=== PATIENT | male | born 1940 | race Caucasian/White ===

== ENCOUNTER → 2016-11-26 | Day surgery (SDC) | payer MEDICARE ==
[~2016-11-26] VITALS: Ht 182.9 cm; Wt 79.5 kg
[~2016-11-26] MED LIST: HYALURONIDASE/LIDOCAINE/EPINEPHRINE/BUPIVACAINE 4.5 ML SYR RIGHT EYE ONE; HYALURONIDASE/LIDOCAINE/EPINEPHRINE/BUPIVACAINE 6 ML SYR RIGHT EYE ONE; LIDOCAINE HCL 1% 30 ML VIAL ONE; LORA-373 PO; LOSA25TA PO; LOVA20TA PO; MIDAZOLAM HCL 2 MG/2 ML VIAL ONE; PROPARACAINE HCL 0.5% OPHT SOLN 15 ML BTL RIGHT EYE ONE; PROPOFOL 200 MG/20 ML AMP ONE; SAW160TA PO; SODIUM CHLORID 0.9% 500 ML INJ 500 ML ONE
[2016-11-26 06:30] VITALS: BP 138/78; PULSE 51; RESP 16; TEMP 98.2; O2SAT 97
[2016-11-26] MEDS: FLURBIPROFEN 0.03% OPHT SOLN 2.5 ML BTL RIGHT EYE SCH ×4 (06:33→06:48)
[2016-11-26] MEDS: PHENYLEPHRINE HCL 10% OPTH SOLN 5 ML BTL RIGHT EYE SCH ×4 (06:33→06:48)
[2016-11-26] MEDS: CYCLOPENTOLATE HCL 1% OPHT SOLN 2 ML BTL RIGHT EYE SCH ×4 (06:33→06:48)
[2016-11-26] MEDS: TROPICAMIDE 1% OPHT SOLN 15 ML BTL RIGHT EYE SCH ×4 (06:33→06:48)
[2016-11-26 06:35] VITALS: PULSE 50
[2016-11-26 07:25] VITALS: PULSE 68
[2016-11-26] MEDS: TOBRAMYCIN/DEXAMETHASONE OPTH OINT 3.5 GM TUBE ONE ×2 (08:20→08:36)
[2016-11-26 08:45] VITALS: TEMP 98
[2016-11-26 09:00] VITALS: BP 116/66; PULSE 48; RESP 15; O2SAT 98
--- NOTE | 2016-11-27 15:27 | MP ---
cc: DWAYNE BERRIOS M.D. Corrected Copy: 12/08/16 [facility] NUMBER: [id number] DATE OF SURGERY: 11/26/2016 PREOPERATIVE DIAGNOSIS: Visually significant cataract right eye. POSTOPERATIVE DIAGNOSIS: Visually significant cataract right eye. OPERATION: Phacoemulsification with posterior chamber lens implantation, right eye. SURGEON: Dwayne Berrios MD ANESTHESIA: Retrobulbar with MAC. COMPLICATIONS: None. PROCEDURE: After informed consent was obtained, the patient was brought into the operative suite and placed on appropriate monitors by the Anesthesia Service. The patient had received a prior retrobulbar injection of local anesthetic by the Anesthesia Service in the holding area. The patient's operative eye was then prepped and draped in the usual sterile fashion. A wire lid speculum was placed. A paracentesis incision was made in the peripheral cornea with a 1 mm agnes keratome. The anterior chamber was filled with viscoelastic. The anterior chamber was then entered through a stepped, clear corneal incision using a sharp 3 mm agnes keratome. A circular tear capsulorrhexis was then made with a bent needle cystitome. Following hydrodissection of the lens nucleus with balanced saline, phaco-emulsification of the nucleus was performed using a modified chopping technique. The remaining cortex was removed with irrigation/aspiration. The prior two procedures were both performed using the handpieces of the [employer] phaco unit. The capsular bag was then filled with viscoelastic. The intraocular lens was then injected into the capsular bag and positioned. The type of intraocular lens and its power can be found elsewhere in this chart. The remaining viscoelastic was then removed from the anterior chamber with the IA handpiece. The anterior chamber was reformed with balanced saline. The wound was then closed securely with stromal hydration. It was found to be watertight to an intraocular pressure of at least 30 mmHg by palpation. A small amount of balanced salt solution was then removed through the paracentesis site and the intraocular pressure at the end of the case was approximately 20 by palpation. All drapes were then removed. TobraDex ointment was then placed in the eye, which was closed beneath a semi-pressure patch dressing. The patient tolerated this procedure well and left the operating room awake and alert. The patient is to follow-up in my office in the morning. MD Brittni Hutchins /9:47 AM /10:01 AM
== END | disposition home or self-care (01) ==
LOC: CSDC 05:48
PROVIDERS: ATTEND Optometrist Occupational Vision
DX: H25.11 Age-related nuclear cataract, right eye (principal)
CPT/HCPCS: 00142; 66984; J2250; J7040; V2632

== ENCOUNTER 2018-07-31 16:18 | Inpatient (IN) ==
[2018-07-31 16:47] LABS: ABG Base Excess 9.7 mmol/L (-2-2); ABG PCO2 56 mmHg (38-42); ABG PO2 119 mmHg (61-120)
--- NOTE | 2018-07-31 16:59 | ED ---
HPI General Chief complaint: Respiratory Symptoms Stated complaint: Resp Distress Time Seen by Provider: 07/31/18 16:37 History of Present Illness HPI narrative: This is a 78-year-old male with a history of COPD, presents today with complaints of shortness of breath. Patient reports that he started experience shortness of breath at home. Despite his medications, patient became very winded. There is no reported fevers, chills. There is no reported productive colored phlegm. He denies any chest pain, chest pressure. There are no other complaints at time of examination. Related Data Home Medications Medication Instructions Recorded Confirmed cyanocobalamin (vitamin B-12) 1,000 mcg PO BID 07/03/18 07/31/18 [Vitamin B-12] lorazepam 0.5 mg PO HS 07/03/18 07/31/18 lovastatin 20 mg PO DAILY 07/03/18 07/31/18 saw palmetto 320 mg PO DAILY 07/03/18 07/31/18 memantine 5 mg PO HS 07/31/18 07/31/18 memantine [Namenda] 10 mg PO DAILY 07/31/18 07/31/18 Previous Rx's Medication Instructions Recorded albuterol sulfate 1 inh INHALATION Q6H PRN #18 g 07/03/18 Allergies Allergy/AdvReac Type Severity Reaction Status Date / Time ipratropium Allergy Severe Itching Verified 07/03/18 18:21 Review of Systems Constitutional Reports system reviewed and no additional complaints, except as docu Eyes Reports system reviewed and no additional complaints, except as docu ENT Reports system reviewed and no additional complaints, except as docu Cardiovascular Denies chest pain and Reports dyspnea Respiratory Denies chest congestion, Reports cough and Reports dyspnea Gastrointestinal Reports system reviewed and no additional complaints, except as docu Genitourinary Denies system reviewed and no additional complaints, except as docu Musculoskeletal Denies back pain and Denies numbness Neurologic Reports system reviewed and no additional complaints, except as docu [facility] Medical History Medical History COPD (chronic obstructive pulmonary disease) (Acute) Alzheimer disease (Acute) Hyperlipidemia (Acute) Social History Social History Substance History: No History of Abuse Second Hand Smoke Exposure: No Smoking Status: Former smoker Tobacco Type: Cigarettes How Often Do You Have a Drink Containing Alcohol: Monthly or less Recent Travel in [facility] within the Last 8 Weeks: No Recent Out of Country Travel within the Last 8 Weeks: No Immunization History Tetanus Immunization: <5 Years Exam Narrative Exam Narrative: GENERAL: Thin elderly appearing male in moderate respiratory distress. SKIN: Focused skin assessment warm/dry. HEAD: Atraumatic. Normocephalic. EYES: Pupils equal and round. No scleral icterus. No injection or drainage. ENT: No nasal bleeding or discharge. Mucous membranes pink and moist. NECK: Trachea midline. Supple. CARDIOVASCULAR: Regular rate and rhythm. No murmur appreciated. RESPIRATORY: Positive accessory muscle use. Decreased breath sounds throughout all 4 lung burrows. No rales appreciated GASTROINTESTINAL: Abdomen soft, non-tender, nondistended. Hepatic and splenic margins not palpable. MUSCULOSKELETAL: No obvious deformities. No clubbing. No cyanosis. No edema. NEUROLOGICAL: Awake and alert. No obvious cranial nerve deficits. Motor grossly within normal limits. Normal speech. Course Initial Documented Vital Signs Temperature 97.3 F L 07/31/18 16:23 Pulse Rate 77 07/31/18 16:23 Respiratory Rate 24 07/31/18 16:23 Blood Pressure 137/74 07/31/18 16:23 Pulse Oximetry 99 07/31/18 16:23 Last Documented Vital Signs Temperature 97.3 F L 07/31/18 16:23 Pulse Rate 84 07/31/18 18:00 Respiratory Rate 21 07/31/18 18:00 Blood Pressure 122/67 07/31/18 18:00 Pulse Oximetry 97 07/31/18 18:00 Medical Decision Making MDM Narrative Medical decision making narrative: 78-year-old male with a history of Alzheimer' s disease, COPD, who presents today with complaints of shortness of breath. Patient was at home when he became extremely short of breath. Patient was given nebulizer treatments en route and 125 mg of Solu-Medrol. The patient is a DO NOT RESUSCITATE. He has been given 2 further nebulizer treatments. He is breathing much better. He will be admitted to the hospital for continued nebulizer treatments and IV steroids. Case was discussed with Dr. Tra Meade, [facility], who agrees with the admission. Medical Screen Exam Complete: Yes Emergency Medical Condition: Yes Differential Diagnosis Differential Diagnosis: COPD exacerbation versus pneumonia versus bronchitis. Lab Data Result diagrams: 07/31/18 16:49 07/31/18 16:49 Lab Results 07/31/18 07/31/18 07/31/18 Range/Units 16:25 16:49 16:49 WBC 5.8 (4.0-11.0) th/mm3 RBC 4.56 (4.50-5.90) mil/mm3 Hgb 15.2 (13.0-17.0) gm/dL Hct 46.3 (39.0-51.0) % MCV 101.6 H (80.0-100.0) fL MCH 33.3 (27.0-34.0) pg MCHC 32.8 (32.0-36.0) % RDW 12.8 (11.6-17.2) % Plt Count 196 (150-450) th/mm3 MPV 9.4 (7.0-11.0) fL Neut % (Auto) 67.5 (16.0-70.0) % Lymph % (Auto) 19.3 (9.0-44.0) % [place] % (Auto) 10.0 H (0.0-8.0) % Eos % (Auto) 2.6 (0.0-4.0) % Baso % (Auto) 0.6 (0.0-2.0) % Neut # (Auto) 3.9 (1.8-7.7) th/mm3 Lymph # (Auto) 1.1 (1.0-4.8) th/mm3 [place] # (Auto) 0.6 (0.0-0.9) th/mm3 Eos # (Auto) 0.2 (0.0-0.4) th/mm3 Baso # (Auto) 0.0 (0.0-0.2) th/mm3 WBC Differential . Differential Comment Auto diff final Puncture Site Left radial Patient Temperature 98.6 O2 Saturation 97 (90-100) % ABG pH 7.41 (7.380-7.420) ABG pCO2 56 H* (38-42) mmHg ABG pO2 119 (61-120) mmHg ABG HCO3 35 H (22-26) mmol/L ABG O2 Content 20.9 H (12.0-20.0) Vol % ABG Base Excess 9.7 H (-2-2) mmol/L ABG Methemoglobin 0.6 (0-2) % Ty Test Present Hemoglobin 15.3 (12.0-16.0) G/DL Carboxyhemoglobin 1.3 (0-4) % O2 Delivery Device Nasal cannula Liter Flow 3.00 L/M Critical Value Yes Sodium 143 (136-145) meq/L Potassium 4.2 (3.5-5.1) meq/L Chloride 100 (98-107) meq/L Carbon Dioxide 38.1 H (21.0-32.0) meq/L Anion Gap 5 (5-15) meq/L BUN 13 (7-18) mg/dL Creatinine 0.69 (0.60-1.30) mg/dL Estimated GFR Greater than 89 (>89) mL/min Random Glucose 90 (74-106) mg/dL Calcium 8.5 (8.5-10.1) mg/dL Total Bilirubin 0.3 (0.2-1.0) mg/dL AST 28 (15-37) U/L ALT 34 (12-78) U/L Alkaline Phosphatase 47 (45-117) U/L Total Creatine Kinase 159 (39-308) U/L CK-MB (CK-2) 3.4 (0.5-3.6) ng/mL Troponin I Less than 0.02 L (0.02-0.05) ng/mL Total Protein 6.8 (6.4-8.2) g/dL Albumin 3.5 (3.4-5.0) g/dL Imaging Data Radiologist's impression: Chest X-Ray 07/31/18 16:42 CONCLUSION: Negative for an acute process Discharge Plan Discharge Disposition Patient Disposition: 30 Still Patient Discharge Details Diagnosis: COPD exacerbation Physicians Team ED Provider: Constantin Travis Primary Care Provider: Kg Coleman Rxs /Orders / Referrals /Forms Prescriptions: No Action cyanocobalamin (vitamin B-12) [Vitamin B-12] 1,000 mcg Tablet 1,000 mcg PO BID RF: 0 lorazepam 0.5 mg Tablet 0.5 mg PO HS RF: 0 saw palmetto 160 mg Capsule 320 mg PO DAILY RF: 0 lovastatin 20 mg Tablet 20 mg PO DAILY RF: 0 albuterol sulfate 90 mcg/actuation HFA aerosol inhaler 1 inh INHALATION Q6H PRN (Reason: shortness of breath) Qty: 18 RF: 0 memantine 5 mg Tablet 5 mg PO HS RF: 0 memantine [Namenda] 5 mg Tablet 10 mg PO DAILY RF: 0 Discharge Interventions Interventions: Vital Signs Last Done: 07/31/18 18:00 Status ED Status: With Doctor
--- NOTE | 2018-07-31 17:05 | XR ---
EXAM DATE: 07/31/2018 4:42 PM EDT AGE/SEX: 78 years / Male INDICATIONS: Shortness of breath. CLINICAL DATA: This is the patient's initial encounter. Patient reports that signs and symptoms have been present for 1 day and indicates a pain score of 0/10. MEDICAL/SURGICAL HISTORY: Hypertension. Chronic obstructive pulmonary disease. None. COMPARISON: [facility]PO, CHEST 1V SINGLE AP, 07/03/2018. . FINDINGS: A single AP view of the chest demonstrates the lungs to be symmetrically aerated without evidence of mass, infiltrate or effusion. The cardiomediastinal contours are unremarkable. Osseous structures a re intact. CONCLUSION: Negative for an acute process Electronically signed by: Marko Munoz MD 07/31/2018 5:04 PM EDT
[2018-07-31 17:08] LABS: Baso % (Auto) 0.6 % (0.0-2.0); Eos # (Auto) 0.2 th/mm3 (0.0-0.4); Eos % (Auto) 2.6 % (0.0-4.0); Hematocrit 46.3 % (39.0-51.0); Hemoglobin 15.2 gm/dL (13.0-17.0); Lymph # (Auto) 1.1 th/mm3 (1.0-4.8); Lymph % (Auto) 19.3 % (9.0-44.0); Mean Corpuscular HGB Conc 32.8 % (32.0-36.0); Mean Corpuscular Hemoglobin 33.3 pg (27.0-34.0); Mean Corpuscular Volume 101.6 fL (80.0-100.0); Mean Platelet Volume 9.4 fL (7.0-11.0); Mono # (Auto) 0.6 th/mm3 (0.0-0.9); Neut # (Auto) 3.9 th/mm3 (1.8-7.7); Neut % (Auto) 67.5 % (16.0-70.0); Platelet Count 196 th/mm3 (150-450); Red Blood Count 4.56 mil/mm3 (4.50-5.90); Red Cell Distribution Width 12.8 % (11.6-17.2); White Blood Count 5.8 th/mm3 (4.0-11.0)
[2018-07-31 17:28] LABS: Alanine Aminotransferase 34 U/L (12-78); Albumin 3.5 g/dL (3.4-5.0); Anion Gap 5 meq/L (5-15); Aspartate Aminotransferase 28 U/L (15-37); Blood Urea Nitrogen 13 mg/dL (7-18); Calcium 8.5 mg/dL (8.5-10.1); Carbon Dioxide 38.1 meq/L (21.0-32.0); Chloride 100 meq/L (98-107); Glomerular Filtration Rate Greater Than 89 mL/min (>89); Glucose,Random 90 mg/dL (74-106); Potassium 4.2 meq/L (3.5-5.1); Sodium 143 meq/L (136-145)
[2018-07-31 17:33] LABS: Alkaline Phosphatase 47 U/L (45-117); Creatine Kinase 159 U/L (39-308); Total Protein 6.8 g/dL (6.4-8.2)
[2018-07-31 17:45] LABS: Creatine Kinase MB 3.4 ng/mL (0.5-3.6)
[2018-07-31] MEDS: Sod Chloride 0.9% Inj 1,000 ML IV.CONT SCH (17:50)
[2018-07-31] MEDS ORDERED: Acetaminophen 325 MG Tablet PO PRN (18:28)
[2018-07-31] MEDS ORDERED: MethylPREDNISolone Sod Succinate Inj 125 MG/2 ML Vial IV.PUSH ONE (18:32)
--- NOTE | 2018-07-31 18:35 | P.HP ---
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 Patient is a poor historian, information gather from patient, family members present and out patient records. Patient was recently seen in [facility] for SOB 07/03/18, patient was Dx with emphysema and given albuterol rescue inhaler. Patient presents today with complaints of shortness of breath. Patient reports that he started experience shortness of breath at home, which was not relieved by is albuterol therefore he proceeded to the ER. Patient has lost 50-60 pounds over the past year. Patient denies fevers, chills, phlegm production, chest pain or chest pressure. 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 knees, hiatal hernia, GERD, kidney stones, allergic rhinitis, hypertension, anxiety and COPD PSxH: EGD/colonoscopy with colon polypectomy, right cataract surgery October 2016, left cataract surgery November 2016 FMH: Father secondary to bladder cancer Mother secondary to CVA Sister had throat cancer Social history: , retired Daily or near daily EtOH use (patient's reports he drinks a, "small [place]hattan," nearly every night Former tobacco user quit smoking in 1989 - Diagnosis (2) COPD exacerbation Review of Systems unobtainable due to mental status PMF - History History Provided By: Patient, 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 - Medical History Medical History: Medical History (Last Reviewed 08/01/18 @ 08:47 by Gaviota Hernandez) COPD (chronic obstructive pulmonary disease) Alzheimer disease Hyperlipidemia - Tobacco History Second Hand Smoke Exposure: No Tobacco Use In Past 30 Days: No Smoking Status: Former smoker Tobacco Type: Cigarettes - Alcohol History How Often Do You Have a Drink Containing Alcohol: Monthly or less - Substance Use History Substance History: No History of Abuse - Travel History Recent Travel in the [place] Within the Last 8 Weeks: No Recent Travel Out of the Country Within the Last 8 Weeks: No - Immunization History Tetanus Immunization: <5 Years Medications and Allergies Allergies Allergy/AdvReac Type Severity Reaction Status Date / Time ipratropium Allergy Severe Itching Verified 07/03/18 18:21 Home Medications Medication Instructions Recorded Confirmed Type cyanocobalamin (vitamin B-12) 1,000 mcg PO BID 07/03/18 07/31/18 History [Vitamin B-12] lorazepam 0.5 mg PO HS 07/03/18 07/31/18 History lovastatin 20 mg PO DAILY 07/03/18 07/31/18 History saw palmetto 320 mg PO DAILY 07/03/18 07/31/18 History memantine 5 mg PO HS 07/31/18 07/31/18 History memantine [Namenda] 10 mg PO DAILY 07/31/18 07/31/18 History Active Medications: Active Medications Sodium Chloride (Ns Inj) 1,000 mls @ 84 mls/hr IV.CONT .[id number] WARD Last Admin: 07/31/18 17:50 Dose: 84 mls/hr Exam Vital signs: Vital Signs 07/31/18 16:23 07/31/18 16:49 07/31/18 17:02 Temperature 97.3 F L Pulse Rate 77 87 Respiratory Rate 24 21 Blood Pressure 137/74 Pulse Oximetry 99 98 07/31/18 17:27 Temperature Pulse Rate 83 Respiratory Rate 21 Blood Pressure 125/63 Pulse Oximetry 99 Intake & Output 07/30/18 07/31/18 07/31/18 18:59 06:59 18:59 Weight 62.596 kg Narrative: GENERAL: This is a cachectic elderly 78 year old male patient CARDIOVASCULAR: Regular rate and rhythm RESPIRATORY: poor air movement through out GASTROINTESTINAL: Abdomen soft, non-tender, nondistended. Normal active bowel sounds MUSCULOSKELETAL: Extremities without clubbing, cyanosis, or edema. NEURO: awake and alert. Moves all ext x4 Results - Labs CBC & Chem 7: 08/01/18 04:13 08/01/18 04:13 Labs: Laboratory Results - last 24 hr 07/31/18 07/31/18 07/31/18 16:25 16:49 16:49 WBC 5.8 RBC 4.56 Hgb 15.2 Hct 46.3 MCV 101.6 H MCH 33.3 MCHC 32.8 RDW 12.8 Plt Count 196 MPV 9.4 Neut % (Auto) 67.5 Lymph % (Auto) 19.3 [place] % (Auto) 10.0 H Eos % (Auto) 2.6 Baso % (Auto) 0.6 Neut # (Auto) 3.9 Lymph # (Auto) 1.1 [place] # (Auto) 0.6 Eos # (Auto) 0.2 Baso # (Auto) 0.0 WBC Differential . Differential Comment Auto diff final Puncture Site Left radial Patient Temperature 98.6 O2 Saturation 97 ABG pH 7.41 ABG pCO2 56 H* ABG pO2 119 ABG HCO3 35 H ABG O2 Content 20.9 H ABG Base Excess 9.7 H ABG Methemoglobin 0.6 Ty Test Present Hemoglobin 15.3 Carboxyhemoglobin 1.3 O2 Delivery Device Nasal cannula Liter Flow 3.00 Critical Value Yes Sodium 143 Potassium 4.2 Chloride 100 Carbon Dioxide 38.1 H Anion Gap 5 BUN 13 Creatinine 0.69 Estimated GFR Greater than 89 Random Glucose 90 Calcium 8.5 Total Bilirubin 0.3 AST 28 ALT 34 Alkaline Phosphatase 47 Total Creatine Kinase 159 CK-MB (CK-2) 3.4 Troponin I Less than 0.02 L Total Protein 6.8 Albumin 3.5 - Imaging Impressions Chest X-Ray 07/31/18 16:42 CONCLUSION: Negative for an acute process Caprini VTE Risk Assessment Caprini VTE Risk Assessment: Moderate/High Risk (score >= 2) Caprini Risk Assessment Model: Point Value = 1 Point Value = 2 Point Value = 3 Point Value = 5 Age 41-60 Minor surgery BMI > 25 kg/m2 Swollen legs Varicose veins or History of unexplained or recurrent spontaneous Oral contraceptives or hormone replacement Sepsis (< 1 month) Serious lung disease, including pneumonia (< 1 month) Abnormal pulmonary function Acute myocardial infarction Congestive heart failure (< 1 month) History of inflammatory bowel disease Medical patient at bed rest Age 61-74 Arthroscopic surgery Major open surgery (> 45 min) Laparoscopic surgery (> 45 min) Malignancy Confined to bed (> 72 hours) Immobilizing plaster cast Central venous access Age >= 75 History of VTE Family history of VTE Factor V Leiden Prothrombin [id number] Lupus anticoagulant Anticardiolipin antibodies Elevated serum homocysteine Heparin-induced thrombocytopenia Other congenital or acquired thrombophilia Stroke (< 1 month) Elective arthroplasty Hip, pelvis, or leg fracture Acute spinal cord injury (< 1 month) Prophylaxis Regimen: Total Risk Factor Score Risk Level Prophylaxis Regimen 0-1 Low Early ambulation 2 Moderate Order ONE of the following: *Sequential Compression Device (SCD) *Heparin 5000 units SQ BID 3-4 Higher Order ONE of the following medications: *Heparin 5000 units SQ TID *Enoxaparin/Lovenox 40 mg SQ daily (WT < 150 kg, CrCl > 30 mL/min) *Enoxaparin/Lovenox 30 mg SQ daily (WT < 150 kg, CrCl > 10-29 mL/min) *Enoxaparin/Lovenox 30 mg SQ BID (WT < 150 kg, CrCl > 30 mL/min) AND/OR *Sequential Compression Device (SCD) 5 or more Highest Order ONE of the following medications: *Heparin 5000 units SQ TID (Preferred with Epidurals) *Enoxaparin/Lovenox 40 mg SQ daily (WT < 150 kg, CrCl > 30 mL/min) *Enoxaparin/Lovenox 30 mg SQ daily (WT < 150 kg, CrCl > 10-29 mL/min) *Enoxaparin/Lovenox 30 mg SQ BID (WT < 150 kg, CrCl > 30 mL/min) AND *Sequential Compression Device (SCD) Assessment and Plan - Assessment (2) COPD exacerbation Code(s): J44.1 - Chronic obstructive pulmonary disease with (acute) exacerbation Status: Acute Plan: This is a 78-year-old male patient with past medical history which includes Dementia, hyperlipidemia, diverticulosis, 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 Patient is a poor historian, information gather from patient, family members present and out patient records. Patient was recently seen in [facility] for SOB 07/03/18, patient was Dx with emphysema and given albuterol rescue inhaler. Patient presents today with complaints of shortness of breath. Patient reports that he started experience shortness of breath at home, which was not relieved by is albuterol. Patient has lost 50 -60 pounds over the past year. Patient denies fevers, chills, phlegm production, chest pain or chest pressure. COPD exacerbation Albuterol scheduled and as needed (patient is allergic to ipratropium) Solu-Medrol 60 mg Q6H Symbicort Ativan as needed Chest X-Ray Negative for an acute process CT chest ordered Weight loss - likely due to advancded dementia CT chest/Abd/pelvis ordered GI consult ordered - patient's family declined they do not want any invasive testing regular diet with ensure TID Advanced dementia continue home Namenda Ativan as needed hospice consulted Hyperlipidemia continue home lovastatin Hypertension not on medication at this time DVT prophylaxis Lovenox Patient is a DNR <Tra Meade - Last Filed: 08/05/18 11:17> History of Present Illness Primary Care Physician: Kg Coleman MD - Diagnosis (1) Dementia (2) COPD exacerbation Inpatient Certification: I certify that the inpatient services were ordered in accordance with Medicare regulations governing the order. This includes certification that hospital inpatient services are reasonable and necessary and in the case of services not specified as inpatient-only under 42 CFR 419.22(n), that they are appropriately provided as inpatient services in accordance to with the 2-midnight benchmark under 43 CFR 412.3(e) [facility] - Medical History Medical History: Medical History (Last Reviewed 08/01/18 @ 08:47 by Gaviota Hernandez) COPD (chronic obstructive pulmonary disease) Alzheimer disease Hyperlipidemia Results - Labs CBC & Chem 7: 08/01/18 04:13 08/01/18 04:13 Caprini VTE Risk Assessment [place] Risk Assessment Model: Point Value = 1 Point Value = 2 Point Value = 3 Point Value = 5 Age 41-60 Minor surgery BMI > 25 kg/m2 Swollen legs Varicose veins or History of unexplained or recurrent spontaneous Oral contraceptives or hormone replacement Sepsis (< 1 month) Serious lung disease, including pneumonia (< 1 month) Abnormal pulmonary function Acute myocardial infarction Congestive heart failure (< 1 month) History of inflammatory bowel disease Medical patient at bed rest Age 61-74 Arthroscopic surgery Major open surgery (> 45 min) Laparoscopic surgery (> 45 min) Malignancy Confined to bed (> 72 hours) Immobilizing plaster cast Central venous access Age >= 75 History of VTE Family history of VTE Factor V Leiden Prothrombin [id number] Lupus anticoagulant Anticardiolipin antibodies Elevated serum homocysteine Heparin-induced thrombocytopenia Other congenital or acquired thrombophilia Stroke (< 1 month) Elective arthroplasty Hip, pelvis, or leg fracture Acute spinal cord injury (< 1 month) Prophylaxis Regimen: Total Risk Factor Score Risk Level Prophylaxis Regimen 0-1 Low Early ambulation 2 Moderate Order ONE of the following: *Sequential Compression Device (SCD) *Heparin 5000 units SQ BID 3-4 Higher Order ONE of the following medications: *Heparin 5000 units SQ TID *Enoxaparin/Lovenox 40 mg SQ daily (WT < 150 kg, CrCl > 30 mL/min) *Enoxaparin/Lovenox 30 mg SQ daily (WT < 150 kg, CrCl > 10-29 mL/min) *Enoxaparin/Lovenox 30 mg SQ BID (WT < 150 kg, CrCl > 30 mL/min) AND/OR *Sequential Compression Device (SCD) 5 or more Highest Order ONE of the following medications: *Heparin 5000 units SQ TID (Preferred with Epidurals) *Enoxaparin/Lovenox 40 mg SQ daily (WT < 150 kg, CrCl > 30 mL/min) *Enoxaparin/Lovenox 30 mg SQ daily (WT < 150 kg, CrCl > 10-29 mL/min) *Enoxaparin/Lovenox 30 mg SQ BID (WT < 150 kg, CrCl > 30 mL/min) AND *Sequential Compression Device (SCD) Assessment and Plan - Assessment (1) Dementia Code(s): F03.90 - Unspecified dementia without behavioral disturbance Status: Acute (2) COPD exacerbation Code(s): J44.1 - Chronic obstructive pulmonary disease with (acute) exacerbation Status: Acute - Attending Attestation The exam, history, and the medical decision-making described in the above note were completed with the assistance of the mid-level provider. I reviewed and agree with the findings presented. I attest that I had a [id number] encounter with the patient on the same day, and personally performed and documented my assessment and findings in the medical record. Patient examined. Assessment and plan formulated with Bailey Guerra PA-C. I agree with the above.
[2018-07-31] MEDS: Enoxaparin Inj 30 MG/0.3 ML Syringe SQ SCH (19:28)
[2018-07-31] MEDS: Senna/Docusate Sodium 8.6/50 MG Tablet PO SCH (20:12)
[2018-07-31] MEDS: Budesonide-Formoterol 160/4.5 MCG 6 GM Inhaler INH SCH (23:29)
[2018-08-01] MEDS: MethylPREDNISolone Sod Succinate Inj 125 MG/2 ML Vial IV.PUSH SCH ×4 (01:51→17:19)
[2018-08-01] MEDS: Sod Chloride 0.9% Inj 1,000 ML IV.CONT SCH ×2 (06:31→17:14)
[2018-08-01 06:34] LABS: Hematocrit 48.2 % (39.0-51.0); Hemoglobin 15.8 gm/dL (13.0-17.0); Lymph # (Auto) 0.1 th/mm3 (1.0-4.8); Lymph % (Auto) 2.4 % (9.0-44.0); Mean Corpuscular HGB Conc 32.9 % (32.0-36.0); Mean Corpuscular Hemoglobin 33.9 pg (27.0-34.0); Mean Corpuscular Volume 103.1 fL (80.0-100.0); Mean Platelet Volume 9.6 fL (7.0-11.0); Mono % (Auto) 0.5 % (0.0-8.0); Neut # (Auto) 5.3 th/mm3 (1.8-7.7); Neut % (Auto) 97.1 % (16.0-70.0); Platelet Count 187 th/mm3 (150-450); Red Blood Count 4.68 mil/mm3 (4.50-5.90); Red Cell Distribution Width 13.4 % (11.6-17.2); White Blood Count 5.5 th/mm3 (4.0-11.0)
[2018-08-01 07:06] LABS: Glomerular Filtration Rate Greater Than 89 mL/min (>89)
[2018-08-01 07:09] LABS: Anion Gap 5 meq/L (5-15); Blood Urea Nitrogen 14 mg/dL (7-18); Calcium 8.5 mg/dL (8.5-10.1); Carbon Dioxide 36.2 meq/L (21.0-32.0); Chloride 101 meq/L (98-107); Glucose,Random 128 mg/dL (74-106); Potassium 4.6 meq/L (3.5-5.1); Sodium 142 meq/L (136-145)
[2018-08-01] MEDS ORDERED: Sodium Chloride 0.9% 2 ML Flush PRN IV.FLUSH (08:43)
--- NOTE | 2018-08-01 08:43 | P.PNIM ---
Subjective Interval history: Follow up: advanced dementia with COPD exacerbation Patient sitting up on edge of bed in underwear with no clothes or gown on Patient does not recall coming o the ER last night offers no medical concerns/complaints at this time patient concerned regarding his breakfast items Physical Exam Vital signs: Vital Signs 07/31/18 16:23 07/31/18 16:49 07/31/18 17:02 Temperature 97.3 F L Pulse Rate 77 87 Respiratory Rate 24 21 Blood Pressure 137/74 Pulse Oximetry 99 98 07/31/18 17:27 07/31/18 18:00 07/31/18 20:00 Temperature 97.6 F Pulse Rate 83 84 85 Respiratory Rate 21 21 18 Blood Pressure 125/63 122/67 127/61 Pulse Oximetry 99 97 98 07/31/18 20:30 08/01/18 00:00 08/01/18 02:59 Temperature 97.8 F Pulse Rate 82 91 H 92 H Respiratory Rate 20 18 18 Blood Pressure 112/62 Pulse Oximetry 98 98 Intake & Output 07/31/18 08/01/18 08/01/18 18:59 06:59 18:59 Intake Total 1240 / 1240 Output Total 1200 / 1200 800 / 800 Balance 40 / 40 -800 / -800 Weight 62.596 kg 61.3 kg Intake: IV 1000 / 1000 NS Inj 1,000 ML @ 84 mls/hr IV. 1000 / 1000 CONT .[id number] REPLACED BY [facility] Rx#:[id number] Oral 240 / 240 Output: Urine 1200 / 1200 800 / 800 Other: Date of Last Bowel Movement 07/31/18 Weight On Admission 61.3 kg Narrative: GENERAL: This is a cachectic elderly 78 year old male patient CARDIOVASCULAR: Regular rate and rhythm RESPIRATORY: decreased through out GASTROINTESTINAL: Abdomen soft, non-tender, nondistended. Normal active bowel sounds MUSCULOSKELETAL: Extremities without clubbing, cyanosis, or edema. NEURO: awake and alert. Moves all ext x4 Results - Labs CBC & Chem 7: 08/01/18 04:13 08/01/18 04:13 Laboratory Results - last 24 hr 07/31/18 07/31/18 07/31/18 16:25 16:49 16:49 WBC 5.8 RBC 4.56 Hgb 15.2 Hct 46.3 MCV 101.6 H MCH 33.3 MCHC 32.8 RDW 12.8 Plt Count 196 MPV 9.4 Neut % (Auto) 67.5 Lymph % (Auto) 19.3 Nicholas % (Auto) 10.0 H Eos % (Auto) 2.6 Baso % (Auto) 0.6 Neut # (Auto) 3.9 Lymph # (Auto) 1.1 Nicholas # (Auto) 0.6 Eos # (Auto) 0.2 Baso # (Auto) 0.0 WBC Differential . Differential Comment Auto diff final Puncture Site Left radial Patient Temperature 98.6 O2 Saturation 97 ABG pH 7.41 ABG pCO2 56 H* ABG pO2 119 ABG HCO3 35 H ABG O2 Content 20.9 H ABG Base Excess 9.7 H ABG Methemoglobin 0.6 Ty Test Present Hemoglobin 15.3 Carboxyhemoglobin 1.3 O2 Delivery Device Nasal cannula Liter Flow 3.00 Critical Value Yes Sodium 143 Potassium 4.2 Chloride 100 Carbon Dioxide 38.1 H Anion Gap 5 BUN 13 Creatinine 0.69 Estimated GFR Greater than 89 Random Glucose 90 Calcium 8.5 Total Bilirubin 0.3 AST 28 ALT 34 Alkaline Phosphatase 47 Total Creatine Kinase 159 CK-MB (CK-2) 3.4 Troponin I Less than 0.02 L Total Protein 6.8 Albumin 3.5 08/01/18 08/01/18 04:13 04:13 WBC 5.5 RBC 4.68 Hgb 15.8 Hct 48.2 MCV 103.1 H MCH 33.9 MCHC 32.9 RDW 13.4 Plt Count 187 MPV 9.6 Neut % (Auto) 97.1 H Lymph % (Auto) 2.4 L Nicholas % (Auto) 0.5 Eos % (Auto) 0.0 Baso % (Auto) 0.0 Neut # (Auto) 5.3 Lymph # (Auto) 0.1 L Nicholas # (Auto) 0.0 Eos # (Auto) 0.0 Baso # (Auto) 0.0 WBC Differential . Differential Comment Auto diff final Puncture Site Patient Temperature O2 Saturation ABG pH ABG pCO2 ABG pO2 ABG HCO3 ABG O2 Content ABG Base Excess ABG Methemoglobin Ty Test Hemoglobin Carboxyhemoglobin O2 Delivery Device Liter Flow Critical Value Sodium 142 Potassium 4.6 Chloride 101 Carbon Dioxide 36.2 H Anion Gap 5 BUN 14 Creatinine 0.57 L Estimated GFR Greater than 89 Random Glucose 128 H Calcium 8.5 Total Bilirubin AST ALT Alkaline Phosphatase Total Creatine Kinase CK-MB (CK-2) Troponin I Total Protein Albumin - Imaging Impressions Chest X-Ray 07/31/18 16:42 CONCLUSION: Negative for an acute process Assessment and Plan - Assessment (1) COPD exacerbation Code(s): J44.1 - Chronic obstructive pulmonary disease with (acute) exacerbation Status: Acute Plan: This is a 78-year-old male patient with past medical history which includes Dementia, hyperlipidemia, diverticulosis, 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 Patient is a poor historian, information gather from patient, family members present and out patient records. Patient was recently seen in [facility] [place] [facility] [place]B 07/03/18, patient was Dx with emphysema and given albuterol rescue inhaler. Patient presents today with complaints of shortness of breath. Patient reports that he started experience shortness of breath at home, which was not relieved by is albuterol. Patient has lost 50 -60 pounds over the past year. Patient denies fevers, chills, phlegm production, chest pain or chest pressure. COPD exacerbation Albuterol scheduled and as needed (patient is allergic to ipratropium) Solu-Medrol 60 mg Q6H -> 08/01 to 60mg Q12H Symbicort Ativan as needed Chest X-Ray Negative for an acute process CT chest ordered Weight loss - likely due to advancded dementia CT chest/Abd/pelvis ordered GI consult ordered - patient's family declined they do not want any invasive testing regular diet with ensure TID Advanced dementia continue home Namenda Ativan as needed hospice consulted Hyperlipidemia continue home lovastatin Hypertension not on medication at this time DVT prophylaxis Lovenox Patient is a DNR The exam, history, and the medical decision-making described in the above note were completed with the assistance of the mid-level provider. I reviewed and agree with the findings presented. I attest that I had a [id number] encounter with the patient on the same day, and personally performed and documented my assessment and findings in the medical record. improved breathing and less sob. cont copd rx. walk test. home neb. severe dementia. pt refusing any medication for dementia or agitation long talk with /family at bedside. they not interested in psych eval, trying to declare incompetence to make his own decisions. They would like hospice eval and comfort at home. Family will take car keys
[2018-08-01] MEDS: Budesonide-Formoterol 160/4.5 MCG 6 GM Inhaler INH SCH ×2 (08:44→20:55)
[2018-08-01] MEDS: Senna/Docusate Sodium 8.6/50 MG Tablet PO SCH ×2 (08:44→20:53)
[2018-08-01] MEDS: Sodium Chloride 0.9% 2 ML Flush BID IV.FLUSH SCH ×2 (08:47→20:54)
[2018-08-01] MEDS ORDERED: Diatrizoate Meglum/Diatrizoate Sod Liq 9 ML UDC PO ONE (09:15)
[2018-08-01] MEDS ORDERED: Haloperidol Inj 5 MG/ML Ampul IV.PUSH PRN (13:31)
[2018-08-01] MEDS ORDERED: LORazepam 1 MG Tablet PO PRN (13:31)
--- NOTE | 2018-08-01 13:42 | ECG ---
Date Performed: 07/31/2018 Time Performed: 16:24:16 PTAGE: 78 years EKG: Sinus rhythm WITH OCCASIONAL SUPRAVENTRICULAR PREMATURE COMPLEXES MARKED LEFT AXIS DEVIATION RIGHT BUNDLE BRANCH BLOCK POSSIBLE SEPTAL MYOCARDIAL INFARCTION ABNORMAL ECG INTERPRETATION BASED ON A DEFAULT AGE OF 40 YEARS PREVIOUS TRACING : 07/03/2018 15.39 Since the previous tracing, no significant change not ed DOCTOR: Mick Portillo Interpretating Date/Time 08/01/2018 13:41:42
--- NOTE | 2018-08-01 14:24 | CT ---
EXAM DATE: 08/01/2018 8:56 AM EDT AGE/SEX: 78 years / Male INDICATIONS: Weight loss CLINICAL DATA: This is the patient's initial encounter. Patient reports that signs and symptoms have been present for 1 day and indicates a pain score of 0/10. MEDICAL/SURGICAL HISTORY: Chronic obstructive pulmonary disease. Alzheimer's disease. None. ORAL CONTRAST: Prescribed oral contrast ingested. RADIATION DOSE: 5.18 CTDI (mGy) ; Combined studies COMPARISON: [facility], CT ABDOMEN AND PELVIS W/ CONTRAST, 02/09/2018. . TECHNIQUE: Multiple contiguous axial images were obtained through the abdomen and pelvis following b olus infusion of 77 ml Omnipaque 350 (iohexol) nonionic water-soluble contrast as a cumulative dose for multiple exams. Prescribed oral contrast ingested. Using automated exposure control and adjustm ent of the mA and/or kV according to patient size, radiation dose was kept as low as reasonably achie vable to obtain optimal diagnostic quality images. DICOM format image data is available electronical ly for review and comparison. FINDINGS: Lung bases are clear. There are degenerative changes of the spine noted. There is a sclerotic focus a djacent to the right S2 neural foramen again seen on image 70. A bone island is suspected. There are no pleural or pericardial effusions. Tiny hepatic cyst right lobe unchanged. Gallbladder, spleen, sterling creas, adrenal glands, left kidney normal. Right upper and lower pole renal cysts are again noted. At herosclerotic calcifications of the aorta and iliac vessels are seen. The prostate is prominent in si ze measuring 6.3 x 3.6 cm in transverse and AP dimension. There is moderate diverticulosis of the sig moid colon without diverticulitis. No evidence of bowel obstruction. Urinary bladder is unremarkable. There is no adenopathy. CONCLUSION: 1. Atherosclerosis. 2. Tiny right hepatic cyst and right renal cysts are noted. 3. Prominent prostate. 4. Diverticulosis without diverticulitis. Electronically signed by: Isreal Brooks MD 08/01/2018 2:23 PM EDT
--- NOTE | 2018-08-01 14:25 | CT ---
EXAM DATE: 08/01/2018 9:06 AM EDT AGE/SEX: 78 years / Male INDICATIONS: Shortness of breath CLINICAL DATA: This is the patient's initial encounter. Patient reports that signs and symptoms have been present for 1 day and indicates a pain score of 0/10. MEDICAL/SURGICAL HISTORY: Chronic obstructive pulmonary disease. Alzheimer's disease. None. RADIATION DOSE: 5.18 CTDI (mGy) ; Combined studies COMPARISON: [facility] [place]ST 1V SINGLE AP, 07/31/2018. [facility] [place], [place] ABDOMEN & PELVIS W CONTRAST, 8. . TECHNIQUE: Multiple contiguous axial images were obtained through the chest during bolus infusion of 77 ml Omnipaque 350 (iohexol) nonionic water-soluble contrast as a cumulative dose for multiple exa ms. Images were obtained in suspended respiration using multiple row detector helical technique. U sing automated exposure control and adjustment of the mA and/or kV according to patient size, radiati on dose was kept as low as reasonably achievable to obtain optimal diagnostic quality images. DICOM format image data is available electronically for review and comparison. FINDINGS: There is no adenopathy. Atherosclerotic calcifications of the aorta and iliac vessels are seen. No pl eural or pericardial effusions are identified. There is a small cyst at the upper pole of the right k idney measuring 1.5 cm. Subcentimeter hepatic cyst right lobe again noted. The osseous structures are intact. Review of lung windows demonstrate clear lungs. Degenerative changes of the spine are noted. CONCLUSION: 1. Atherosclerosis. 2. Clear lungs. Electronically signed by: Isreal Brooks MD 08/01/2018 2:24 PM EDT
[2018-08-01] MEDS: Enoxaparin Inj 30 MG/0.3 ML Syringe SQ SCH (18:14)
[2018-08-01] MEDS: guaiFENesin 600 MG ER Tablet PO SCH (20:53)
--- NOTE | 2018-08-02 00:21 | CT ---
EXAM DATE: 08/02/2018 12:02 AM EDT AGE/SEX: 78 years / Male INDICATIONS: Syncope status post fall. CLINICAL DATA: This is the patient's initial encounter. Patient reports that signs and symptoms have been present for 1 day and indicates a pain score of 0/10. MEDICAL/SURGICAL HISTORY: Chronic obstructive pulmonary disease. Alzheimer's disease. None. RADIATION DOSE: 66.34 CTDI (mGy) COMPARISON: . TECHNIQUE: CT of the head without contrast. Using automated exposure control and adjustment of the mA and/or kV according to patient size, radiation dose was kept as low as reasonably achievable to ob tain optimal diagnostic quality images. DICOM format image data is available electronically for revi ew and comparison. FINDINGS: Noncontrast axial head CT demonstrates the ventricles to be normal in size and configuration with a n ormal sulcal pattern. No acute intracranial hemorrhage, acute cortical infarction, mass or midline sh ift is seen. Posterior fossa structures are unremarkable. Bone windows are unremarkable. CONCLUSION: No evidence of acute intracranial pathology. No masses are identified. . Electronically signed by: Lg Keating MD 08/02/2018 12:20 AM EDT
[2018-08-02] MEDS: MethylPREDNISolone Sod Succinate Inj 125 MG/2 ML Vial IV.PUSH SCH (06:33)
[2018-08-02] MEDS: Sod Chloride 0.9% Inj 1,000 ML IV.CONT SCH (06:33)
--- NOTE | 2018-08-02 08:34 | P.DCO ---
- Diagnosis (1) Dementia Status: Acute (2) COPD exacerbation Status: Acute - Physical Therapy Order: Evaluate and treat - Home Health Nursing Order: Medical education, Signs/symptoms of disease process, Oxygen administration education, Medication education-adverse effect, Nursing assessment with vital signs - Home Health Aide Order: To assist in: Bathing and personal care - Auto Body Detailer Order: To evaluate: Living conditions/environment, Support services Order: To provide: Long range planning, Community services - Case Management Consult No - Certification I have seen patient Raul Pickens on 08/02/18. My clinical findings support the need for the requested home health care services because: Patient has SOB, Limited ability to care for self I certify that my clinical findings support that this patient is homebound because: Impaired cognitive ability/safety, Hx COPD - exertion dyspnea/weakness
--- NOTE | 2018-08-02 08:50 | P.PNIM ---
Subjective Interval history: Patient resting in bed denies SOB/cough reports he fell last night trying to get out of bed Denies LOC, headache or changes in vision Patient continues to want to go home Physical Exam Vital signs: Vital Signs 08/01/18 09:32 08/01/18 12:00 08/01/18 16:00 Temperature 98.3 F 97.6 F Pulse Rate 86 81 81 Respiratory Rate 16 16 16 Blood Pressure 103/55 L 108/54 L Pulse Oximetry 95 96 98 08/01/18 16:48 08/01/18 20:00 08/01/18 21:10 Temperature 98.1 F Pulse Rate 81 89 Respiratory Rate 18 18 Blood Pressure 105/53 L Pulse Oximetry 91 L 91 L 08/01/18 22:55 08/02/18 00:00 08/02/18 00:56 Temperature 98 F 98.1 F 98 F Pulse Rate 103 H 75 80 Respiratory Rate 16 16 16 Blood Pressure 120/62 117/56 L 116/56 L Pulse Oximetry 94 L 98 96 08/02/18 01:56 08/02/18 04:00 08/02/18 08:00 Temperature 98.2 F 97.0 F L 98.3 F Pulse Rate 76 93 H 79 Respiratory Rate 18 18 18 Blood Pressure 120/60 124/60 106/58 L Pulse Oximetry 97 99 Intake & Output 08/01/18 08/02/18 08/02/18 18:59 06:59 18:59 Intake Total 1600 / 1600 1000 / 1000 Output Total 1000 / 1000 Balance 600 / 600 1000 / 1000 Weight 62.9 kg Intake: IV 1000 / 1000 1000 / 1000 NS Inj 1,000 ML @ 84 mls/hr IV. 1000 / 1000 1000 / 1000 CONT .[id number] [facility] Rx#:[id number] Oral 600 / 600 Output: Urine 1000 / 1000 Other: # Voids 2 3 Date of Last Bowel Movement 07/31/18 Narrative: GENERAL: This is a cachectic elderly 78 year old male patient SKIN: small (approximally 1 cm) area of dried blood left posterior scalp CARDIOVASCULAR: Regular rate and rhythm RESPIRATORY: decreased through out GASTROINTESTINAL: Abdomen soft, non-tender, nondistended. Normal active bowel sounds MUSCULOSKELETAL: Extremities without clubbing, cyanosis, or edema. NEURO: awake and alert. Moves all ext x4 Results - Labs CBC & Chem 7: 08/01/18 04:13 08/01/18 04:13 Laboratory Results - last 24 hr 08/01/18 08/01/18 04:13 20:52 POC Glucose 135 H Vitamin B12 605 - Imaging Impressions Abdomen/Pelvis CT 08/01/18 00:00 CONCLUSION: 1. Atherosclerosis. 2. Tiny right hepatic cyst and right renal cysts are noted. 3. Prominent prostate. 4. Diverticulosis without diverticulitis. Chest CT 08/01/18 00:00 CONCLUSION: 1. Atherosclerosis. 2. Clear lungs. Head CT 08/02/18 00:02 CONCLUSION: No evidence of acute intracranial pathology. No masses are identified. . Assessment and Plan - Assessment (1) Dementia Code(s): F03.90 - Unspecified dementia without behavioral disturbance Status: Acute (2) COPD exacerbation Code(s): J44.1 - Chronic obstructive pulmonary disease with (acute) exacerbation Status: Acute Plan: This is a 78-year-old male patient with past medical history which includes Dementia, hyperlipidemia, diverticulosis, 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 Patient is a poor historian, information gather from patient, family members present and out patient records. Patient was recently [place] [facility] [place] [facility] [place], patient was Dx with emphysema and given albuterol rescue inhaler. Patient presents today with complaints of shortness of breath. Patient reports that he started experience shortness of breath at home, which was not relieved by is albuterol. Patient has lost 50 -60 pounds over the past year. Patient denies fevers, chills, phlegm production, chest pain or chest pressure. COPD exacerbation Albuterol scheduled and as needed (patient is allergic to ipratropium) Solu-Medrol 60 mg Q6H -> 08/01 to 60mg Q12H Symbicort Ativan as needed Chest X-Ray Negative for an acute process CT chest ordered reveals: 1. Atherosclerosis. 2. Clear lungs. Patient had fall last night-denies LOC, headache or changes in vision small approximately 1 cm area of dried blood present Head CT 08/02/18 reveals: No evidence of acute intracranial pathology. No masses are identified. Weight loss - likely due to advanced dementia CT chest/Abd/pelvis reveals: 1. Atherosclerosis. 2. Tiny right hepatic cyst and right renal cysts are noted. 3. Prominent prostate. 4. Diverticulosis without diverticulitis. GI consult offered - patient's family declined they do not want any invasive testing regular diet with ensure TID Advanced dementia continue home Namenda Ativan as needed hospice consulted Hyperlipidemia continue home lovastatin Hypertension not on medication at this time DVT prophylaxis Lovenox Patient is a DNR Patient and family met with hospice 08/01 plan to go home with hospice
[2018-08-02] MEDS: guaiFENesin 600 MG ER Tablet PO SCH (09:24)
[2018-08-02] MEDS: Sodium Chloride 0.9% 2 ML Flush BID IV.FLUSH SCH (09:25)
[2018-08-02] MEDS: Senna/Docusate Sodium 8.6/50 MG Tablet PO SCH (09:25)
[2018-08-02] MEDS: Budesonide-Formoterol 160/4.5 MCG 6 GM Inhaler INH SCH (09:26)
--- NOTE | 2018-08-02 12:50 | P.DS ---
Date of admission: 07/31/18 19:08 Primary care physician: Kg Coleman MD Attending physician on discharge: Akbar Green Anticipated date of discharge: 08/02/18 Brief History from admission: This is a 78-year-old male patient with past medical history which includes advanced dementia, hyperlipidemia, diverticulosis, 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 Patient is a poor historian, information gather from patient, family members present and out patient records. Patient was recently seen in [facility] for SOB 07/03/18, patient was Dx with emphysema and given albuterol rescue inhaler. Patient presents today with complaints of shortness of breath. Patient reports that he started experience shortness of breath at home, which was not relieved by is albuterol therefore he proceeded to the ER. Patient has lost 50-60 pounds over the past year. Patient denies fevers, chills, phlegm production, chest pain or chest pressure. 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 knees, hiatal hernia, GERD, kidney stones, allergic rhinitis, hypertension, anxiety and COPD PSxH: EGD/colonoscopy with colon polypectomy, right cataract surgery October 2016, left cataract surgery November 2016 FMH: Father secondary to bladder cancer Mother secondary to CVA Sister had throat cancer Social history: , retired Daily or near daily EtOH use (patient's reports he drinks a, "small manhattan," nearly every night Former tobacco user quit smoking in 1989 DS: Diagnosis - Discharge Diagnosis (1) Dementia Status: Acute (2) COPD exacerbation Status: Acute DS: Medications - Discharge Medications Prescriptions: albuterol sulfate 1.25 mg NEB Q2HR NEB PRN 30 Days ml PRN Reason: Shortness Of Breath/Wheezing prednisone See Label Instructions .ROUTE .COMPLEX #11 tab DS: Summary Hospital Course: This is a 78-year-old male patient with past medical history which includes Dementia, hyperlipidemia, diverticulosis, 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 Patient is a poor historian, information gather from patient, family members present and out patient records. Patient was recently seen in [facility] for SOB 07/03/18, patient was Dx with emphysema and given albuterol rescue inhaler. Patient presents today with complaints of shortness of breath. Patient reports that he started experience shortness of breath at home, which was not relieved by is albuterol. Patient has lost 50 -60 pounds over the past year. Patient denies fevers, chills, phlegm production, chest pain or chest pressure. COPD exacerbation Albuterol scheduled and as needed (patient is allergic to ipratropium) Solu-Medrol 60 mg Q6H -> 08/01 to 60mg Q12H Symbicort Ativan as needed Chest X-Ray Negative for an acute process CT chest ordered reveals: 1. Atherosclerosis. 2. Clear lungs. Patient had fall last night-denies LOC, headache or changes in vision small approximately 1 cm area of dried blood present Head CT 08/02/18 reveals: No evidence of acute intracranial pathology. No masses are identified. Weight loss - likely due to advanced dementia CT chest/Abd/pelvis reveals: 1. Atherosclerosis. 2. Tiny right hepatic cyst and right renal cysts are noted. 3. Prominent prostate. 4. Diverticulosis without diverticulitis. GI consult offered - patient's family declined they do not want any invasive testing regular diet with ensure TID Advanced dementia continue home Namenda Ativan as needed hospice consulted Hyperlipidemia continue home lovastatin Hypertension not on medication at this time DVT prophylaxis Lovenox Patient is a DNR Patient and family met with hospice 08/01 plan to go home with hospice - Time Spent with Patient Total time spent providing and/or coordinating discharge services: Greater than 30 minutes - Quality: VTE Deep Vein Thrombosis/Pulmonary Embolism Present on Admission: No Exam Vital signs: Vital Signs 08/01/18 16:00 08/01/18 16:48 08/01/18 20:00 Temperature 97.6 F 98.1 F Pulse Rate 81 81 89 Respiratory Rate 16 18 18 Blood Pressure 108/54 L 105/53 L Pulse Oximetry 98 91 L Pulse Oximetry [Resting on Room Air] Pulse Oximetry [Resting with Oxygen] 08/01/18 21:10 08/01/18 22:55 08/02/18 00:00 Temperature 98 F 98.1 F Pulse Rate 103 H 75 Respiratory Rate 16 16 Blood Pressure 120/62 117/56 L Pulse Oximetry 91 L 94 L 98 Pulse Oximetry [Resting on Room Air] Pulse Oximetry [Resting with Oxygen] 08/02/18 00:56 08/02/18 01:56 08/02/18 04:00 Temperature 98 F 98.2 F 97.0 F L Pulse Rate 80 76 93 H Respiratory Rate 16 18 18 Blood Pressure 116/56 L 120/60 124/60 Pulse Oximetry 96 97 Pulse Oximetry [Resting on Room Air] Pulse Oximetry [Resting with Oxygen] 08/02/18 08:00 08/02/18 10:17 08/02/18 10:43 Temperature 98.3 F Pulse Rate 79 79 Respiratory Rate 18 16 Blood Pressure 106/58 L Pulse Oximetry 99 95 Pulse Oximetry [Resting on Room Air] 87 L Pulse Oximetry [Resting with Oxygen] 97 08/02/18 12:00 Temperature 98.1 F Pulse Rate 91 H Respiratory Rate 20 Blood Pressure 100/57 L Pulse Oximetry 97 Pulse Oximetry [Resting on Room Air] Pulse Oximetry [Resting with Oxygen] Intake & Output 08/01/18 08/02/18 08/02/18 18:59 06:59 18:59 Intake Total 1600 / 1600 1000 / 1000 Output Total 1000 / 1000 Balance 600 / 600 1000 / 1000 Weight 62.9 kg Intake: IV 1000 / 1000 1000 / 1000 NS Inj 1,000 ML @ 84 mls/hr IV. 1000 / 1000 1000 / 1000 CONT .[id number] [facility] Rx#:[id number] Oral 600 / 600 Output: Urine 1000 / 1000 Other: # Voids 2 3 Date of Last Bowel Movement 07/31/18 Narrative: GENERAL: This is a cachectic elderly 78 year old male patient SKIN: small (approximally 1 cm) area of dried blood left posterior scalp CARDIOVASCULAR: Regular rate and rhythm RESPIRATORY: decreased through out GASTROINTESTINAL: Abdomen soft, non-tender, nondistended. Normal active bowel sounds MUSCULOSKELETAL: Extremities without clubbing, cyanosis, or edema. NEURO: awake and alert. Moves all ext x4 Results Procedures completed during hospitalization: None Labs on day of discharge: Labs from last 24 hours 08/01/18 08/01/18 20:52 04:13 POC Glucose 135 H Vitamin B12 605 - Impressions ITS Impressions Chest X-Ray 07/31/18 16:42 CONCLUSION: Negative for an acute process Abdomen/Pelvis CT 08/01/18 00:00 CONCLUSION: 1. Atherosclerosis. 2. Tiny right hepatic cyst and right renal cysts are noted. 3. Prominent prostate. 4. Diverticulosis without diverticulitis. Chest CT 08/01/18 00:00 CONCLUSION: 1. Atherosclerosis. 2. Clear lungs. Head CT 08/02/18 00:02 CONCLUSION: No evidence of acute intracranial pathology. No masses are identified. . Discharge Plan - Discharge Disposition Patient Disposition: W/Home Health Service - Discharge Condition Condition: Stable - Discharge Order Discharge Orders: Discharge Order (Routine); Ordered 08/02/18 Ordered By: Bailey Guerra - Physicians Team Primary Care Provider: Kg Coleman Attending Provider: Tra Meade
== END 2018-08-02 15:48 | disposition hospice, home (50) ==
LOC: NEPE 16:18 → NEDA 19:08 → N07 19:57
PROVIDERS: ADMIT Hospitalist; ATTEND Hospitalist